=== PATIENT | male | born 1990 | race African-American/Black ===

== ENCOUNTER 2021-02-04 11:31 | Emergency (ER) | payer SELFPAY ==
[2021-02-04 11:35] VITALS: BP 150/103; PULSE 81; RESP 18; TEMP 36.5; O2SAT 100
--- NOTE | 2021-02-04 13:16 | ED.GENADULT ---
HPI - General Adult General Chief complaint: Unspecified Stated complaint: hemorrhoids Time Seen by Provider: 02/04/21 13:14 Source: patient and family History of Present Illness HPI narrative: 30 years old -Romanian male presents with hemorrhoids with intermittent bleeding for the last few weeks. Patient denies any fever, chills, nausea, vomiting, constipation. Related Data Allergies Allergy/AdvReac Type Severity Reaction Status Date / Time No Known Allergies Allergy Verified 02/04/21 11:52 Review of Systems Review of Systems: CONSTITUTIONAL: Denies fever, chills, or sweats. EYES: Denies visual changes, redness, or discharge. ENT: Denies rhinorrhea, congestion, sore throat, or otalgia. CARDIOVASCULAR: Denies chest pain, palpitations, or edema. RESPIRATORY: Denies cough or dyspnea. GASTROINTESTINAL: Denies abdominal pain, nausea, vomiting, or diarrhea. GENITOURINARY: Denies dysuria or hematuria. SKIN: Denies rash or itching. MUSCULOSKELETAL: Denies back pain, joint pain, or myalgia. NEUROLOGIC: Denies headache, numbness, or weakness. PSYCHIATRIC: Denies anxiety or depression. Exam Narrative: General appearance: Well-developed, well-nourished Skin: Normal color Head: Normocephalic, nontraumatic Eyes: Clear conjunctiva ENT: Oropharynx normal, ears normal, nose normal Neck: Supple, nontender Chest and respiratory: Airway patent, no respiratory distress, no accessory muscle use Heart: Regular rate/rhythm Abdomen: Soft, nontender, no organomegaly, quiet bowel sounds rectal exam showed hemorrhoids, no active bleeding, no thrombosis. Vascular: Normal peripheral pulses, normal capillary refill. Musculoskeletal: Normal range of motion, nontender back Neurologic: Alert and oriented ?3, WATER PROJECT MANAGER is normal as tested, no gross motor deficit Course Course Emergency Course: Stable Vital Signs Vital signs: Vital Signs Temperature 36.5 C 02/04/21 11:35 Pulse Rate 81 02/04/21 11:35 Respiratory Rate 18 02/04/21 11:35 Blood Pressure 150/103 H 02/04/21 11:35 Pulse Oximetry 100 02/04/21 11:35 Temperature 36.5 C 02/04/21 11:35 Pulse Rate 81 02/04/21 11:35 Respiratory Rate 18 02/04/21 11:35 Blood Pressure 150/103 H 02/04/21 11:35 Pulse Oximetry 100 02/04/21 11:35 Medical Decision Making MDM Narrative Medical decision making narrative: Hemorrhoids Vital Signs Vital Signs: Vital Signs Temperature 36.5 C 02/04/21 11:35 Pulse Rate 81 02/04/21 11:35 Respiratory Rate 18 02/04/21 11:35 Blood Pressure 150/103 H 02/04/21 11:35 Pulse Oximetry 100 02/04/21 11:35 Temperature 36.5 C 02/04/21 11:35 Pulse Rate 81 02/04/21 11:35 Respiratory Rate 18 02/04/21 11:35 Blood Pressure 150/103 H 02/04/21 11:35 Pulse Oximetry 100 02/04/21 11:35 Critical Care Time Critical Care Time Critical Care Time: No Discharge Plan Discharge Clinical Impression: Hemorrhoids Qualifiers: Hemorrhoid type: unspecified Qualified Code(s): K64.9 - Unspecified hemorrhoids Patient Disposition: Home, Self-Care Condition: Stable Instructions: Antibiotic Form, Hemorrhoids (ED) Additional Instructions: Return if symptoms are worsening , call surgery for appointment, take Tylenol as as needed for aches and pain, continue home medications., Sitz bath Prescriptions: New docusate sodium [Colace] 100 mg capsule 100 mg PO BID Qty: 20 RF: 0 hydrocortisone acetate [Anusol-HC] 25 mg suppository 25 mg RECTAL BID Qty: 20 RF: 0 Follow-up/Referrals: Juancho Kaplan MD [Physician] - 02/07/21 PHYSICIAN,PRODUCTION CONTROL ANALYST [Primary Care Provider] -
[2021-02-04 14:00] VITALS: BP 125/61; PULSE 62; RESP 18; O2SAT 100
--- NOTE | 2021-02-05 17:37 | PC.NURSE ---
Spoke to Aguila Aguila, made aware back pack is here, he asked if it was little and pink, then said it was his daughters and will come get it. Aguila advised to pickle processor before 10.12 before it is sent to [facility].
== END 2021-02-04 14:00 | disposition home or self-care (01) ==
PROVIDERS: Emergency Provider Emergency Medicine
DX: K64.9 Unspecified hemorrhoids (principal)
CPT/HCPCS: 99283